=== PATIENT | male | born 1945 | race Caucasian/White ===

== ENCOUNTER 2023-06-22 11:26 | Day surgery (SDC) | payer MEDICARE, SELFPAY ==
[2023-06-22] MEDS: Lactated Ringers 1,000 ML 15 ML IV (11:45)
[2023-06-22 12:02] VITALS: BP 125/75; PULSE 79; RESP 18; TEMP 36.2; O2SAT 97; BMI 30.7
--- NOTE | 2023-06-22 13:50 | DCINST_ITS ---
Discharge Instructions Diet Discharge Diet: No restrictions, Light diet - advance as tolerated and Soft diet Activity Discharge Activity: Return to Normal Activity Follow Up Care Please Follow Up With: Garry Jean MD Test Results: Test results from this visit will be discussed in further detail at your follow- up appointment, if applicable. Discharge Plan Admission Primary Reason for Your Visit: markers and spacer gel Attending Provider: Garry Jean Primary Care Provider: Hardeep Luque Discharge Orders/Prescriptions Prescriptions: New ciprofloxacin HCl [Cipro] 500 mg tablet 500 mg PO BID Qty: 10 0RF Continued diphenoxylate-atropine 2.5-0.025 mg tablet 1 tab PO DAILY PRN (Reason: diarrhea) lisinopril-hydrochlorothiazide 20-25 mg tablet 1 tab PO DAILY Adult Multivitamin Gummies 200 mcg tablet,chewable 1 tab PO DAILY Referrals / Follow Up: Hardeep Luque MD [Primary Care Provider] - Disposition Disposition (needs filled in before D/C Order can be placed): Home, Self Care
--- NOTE | 2023-06-22 13:50 | HP.PCM_ITS ---
HPI - General General Date of Service: 06/22/23 Chief Complaint: Prostate cancer HPI Narrative DEEDEE MERA, is a 77 M who presents for placement of spacer gel and markers for prostate cancer he plans to have radiation therapy [facility] Medical History (Updated 06/14/23 @ 13:42 by Caro Blackburn) Cancer Diarrhea Easy bruising Elevated PSA HTN (hypertension) Knee arthropathy Nocturia Non-smoker Prostate disease Wears glasses Home Medications diphenoxylate-atropine 2.5 mg-0.025 mg tablet 1 tab PO DAILY PRN diarrhea 04/01/23 [History Last Taken Unknown] lisinopril 20 mg-hydrochlorothiazide 25 mg tablet 1 tab PO DAILY 04/01/23 [History Last Taken Unknown] multivitamin with minerals-folic acid 200 mcg chewable tablet (Adult Multivitamin Gummies) 1 tab PO DAILY 04/01/23 [History Last Taken Unknown] ciprofloxacin HCl 500 mg tablet (Cipro) 500 mg PO BID #10 tabs 06/22/23 [Rx Last Taken Unknown] Allergy/AdvReac Type Severity Reaction Status Date / Time No Known Allergies Allergy Verified 06/14/23 13:35 Family History Mother Diabetes Father CVA (cerebral vascular accident) Hypertension Sister Hypertension Brother CVA (cerebral vascular accident) Diabetes Hypertension Prostate cancer Surgical History H/O colonoscopy History of local excision of skin lesion Social History Smoking Status: Never smoker alcohol intake: never substance use type: does not use Vital Signs Vital Signs Vital Signs: 06/22/23 12:02 06/22/23 12:02 Temperature 97.1 F L Temperature Source Temporal Pulse Rate 79 Respiratory Rate 18 Respiratory Pattern Normal Blood Pressure 125/75 H Blood Pressure Mean 91 Blood Pressure Source Monitor Blood Pressure Position Semi-Fowlers Blood Pressure Location Right Arm Pulse Ox 97 Oxygen Delivery Method Room Air Weight Weight: 97 kg Body Mass Index (BMI) 30.7
[2023-06-22] MEDS: Cefazolin 2 GM in 0.9% Normal Saline 100 ML IV (14:00)
--- NOTE | 2023-06-22 14:18 | OP.PCM_ITS ---
Report of Operation Date of Procedure: 06/22/23 Pre-Operative Diagnosis: prostate ca Post-Operative Diagnosis: same Surgery/Procedure Performed:: gold markers and space gel. Description of Surgical Findings:: In the preoperative area I reviewed with the patient how the procedure is done we talked about the risk of the procedure including the risk of infection, bleeding, migration of the spacer gel, the patient is planning to have radiation to the prostate he understands that the spacer gel has demonstrated benefit in reducing the risk of toxicity from the ration radiation to the rectum but there is no guarantees that this spacer gel will prevent any serious complications or toxicity to the rectum or bowels. After reviewing this with the patient and his family organ to proceed with placement of a spacer gel matrix. Patient was taken back to the operating room after smooth induction of anesthesia he was placed supine on the table. The genitals and perineum were prepped and draped in usual sterile fashion. The penis and testicles were prepped and draped in usual sterile fashion, ultrasound probe was placed into the rectum and biplanar ultrasound was performed on the prostate. Identified the base mid and apex of the prostate identified the transition zone prostate. Then using a needle the first carbon plant grinder was placed into the right base of the prostate, the second carbon plant grinder was placed in the left base of the prostate, and the third core marker was placed in the right apex of the prostate after all 3 markers were placed the placement of the markers were confirmed by ultrasonography. I then introduced a biplanar ultrasound probe into the rectum and performed ultrasonography and identified the Denonvilliers' fascia the prostate mid base and apex and seminal vesicles. The spacer gel mix was then prepared on the back table per manufactures instruction. Under ultrasound guidance in the midline perineum a bevel needle down we advanced through the perineum below the prostate into the space of Denonvilliers' fascia. This space which could be identified by ultrasound with a bright white layer between the prostate and the rectum. I then injected a puff of normal saline to identify the space further. After I confirmed that the needle was in the correct space in the mid prostate and the space of Denonvilliers' fascia between the rectum and the prostate. Then over the course of 15 seconds the gel matrix was injected slowly there was nice separation between the prostate and the rectum at the gel matrix was injected. The position of the gel matrix was confirmed by ultrasound. Then the injection needle was removed intact. Patient's perineum was cleaned patient was taken out of stirrups and then taken back to the PACU in good condition. Surgeon: Garry Jean Type of Anesthesia: General
[2023-06-22 14:30] VITALS: BP 110/71; BP 125/75; PULSE 82; RESP 18; TEMP 36.3; O2SAT 93
[2023-06-22 14:45] VITALS: BP 118/74; BP 125/75; PULSE 72; RESP 18; O2SAT 97
[2023-06-22 14:54] VITALS: BP 121/86; BP 125/75; PULSE 72; RESP 18; TEMP 36.3; O2SAT 98
[2023-06-22 15:12] VITALS: BP 125/75
== END 2023-06-22 15:44 | disposition home or self-care (01) ==
LOC: SDC 11:30 → AC 11:36
PROVIDERS: PCP Family Medicine; Referring Provider Urology; Visit Provider Urology
PROC: (CPT 55874; principal; 2023-06-22 13:25)
DX: C61 Malignant neoplasm of prostate (principal); I10 Essential (primary) hypertension; Z79.899 Other long term (current) drug therapy; Z80.42 Family history of malignant neoplasm of prostate
CPT/HCPCS: 55876; 55874; 00902; J7120; J2405

== ENCOUNTER → 2023-06-29 | Outpatient (CLI) | payer MEDICARE, SELFPAY ==
--- NOTE | 2023-06-29 11:30 | MRI_ITS ---
STUDY: MR PELVIS WITH AND WITHOUT CONTRAST (PROSTATE) REASON FOR EXAM: Male, 77 years old. Prostate cancer, planning for radiation therapy, elevated PSA TECHNIQUE: Standardized multiparametric prostate MRI with T1, T2, DWI/ADC sequences were obtained in 3 orthogonal planes, and dynamic contrast enhancement sequences. 20 ml of clariscan contrast material was administered intravenously for the contrast portion of the examination. COMPARISON: None. FINDINGS: The prostate volume measures 42 mm3. The contours of the prostate gland are smooth. There is not mass effect on the bladder base. The transition zone is heterogenous. PI-RADS DWI score 3 - Focal mildly hypointense on ADC and isointense/mildly hyperintense on high b-value DWI. PI-RADS T2W score 4 - Non-circumscribed, homogeneous, moderately hypointense, and <1.5 cm in greatest dimension. Contrast enhancement (+) Focal, earlier or contemporaneous with enhancement of adjacent normal prostatic tissues, and corresponding to a suspicious finding on T2WI and/or DWI. 1.1 x 1.2 cm T2 hypointense nodule of the anterior basilar transitional zone on image 14 series 9 and image 11 series 7. NO documented extraprostatic extension. The peripheral zone is homogenous. PI-RADS DWI score 2 - Linear/wedge shaped hypointense on ADC and/or linear/wedge shaped hyperintense on high b-value DWI. PI-RADS T2W score 2 - Linear, wedge-shaped, or diffuse mild hypointensity, usually with indistinct margin. Contrast enhancement no early or contemporaneous enhancement; or diffuse multifocal enhancement NOT corresponding to a focal finding on T2W and/or DWI or focal enhancement responding to a lesion demonstrating features of BPH onT2WI (including features of extruded BPH in the PZ). The seminal vesicles demonstrate normal margins and T2 signal pattern. No mass lesion or invasion depicted. The rectoprostatic angles are normal. Hyperintensity between the rectum and prostate likely iatrogenic. Urinary bladder is normal without wall thickening. The vascular structures of the are normal. The visualized hollow viscus structures are normal. No bone marrow edema or mass lesion depicted. MRI/Pelvis W/WO Contrast IMPRESSION: 1. PIRADS v2.1 2019 -- 4 - High (clinically significant cancer is likely). Electronically Signed: Mauricio Lopez (Brooks), at 14:54 EDT Reading Location ID and State: [address] [place] [address] , Service support ,
[2023-06-29 11:51] LABS: CREATININE FINGERSTICK 1.2 mg/dL (0.70-1.30); EGFR FINGERSTICK > 60.0000 mL/min (>60)
== END | disposition home or self-care (01) ==
LOC: MRI 10:59
PROVIDERS: PCP Family Medicine; Referring Provider Student in an Organized Health Care Education/Training Program; Visit Provider Student in an Organized Health Care Education/Training Program
DX: C61 Malignant neoplasm of prostate (principal)
CPT/HCPCS: 72197; A9575